=== PATIENT | female | born 1980 | race American Indian/Alaskan Native ===

== ENCOUNTER 2017-07-30 22:08 | Inpatient (IN) | payer OTHER ==
[2017-07-30 23:35] LABS: Hematocrit 51.6 % (30.3-42.9); Hemoglobin 16.7 gm/dl (10.1-14.3); Mean Corpuscular HGB Conc 32 % (30-34); Mean Corpuscular Hemoglobin 27 pg (28-32); Mean Corpuscular Volume 84 fl (79-97); Red Blood Count 6.13 M/mm3 (3.65-5.03); Red Cell Distribution Width 14.3 % (13.2-15.2); White Blood Count 10.7 K/mm3 (4.5-11.0)
[2017-07-30 23:42] LABS: Anion Gap 33 mmol/L; BUN/Creatinine Ratio 20; Blood Urea Nitrogen 18 mg/dL (7-17); Calcium 11.2 mg/dL (8.4-10.2); Carbon Dioxide 15 mmol/L (22-30); Chloride 93.5 mmol/L (98-107); Glucose 100 mg/dL (65-100); Potassium 4.7 mmol/L (3.6-5.0); Sodium 137 mmol/L (137-145)
[2017-07-30 23:51] LABS: Platelet Count 216 K/mm3 (140-440)
[2017-07-31 01:13] LABS: Bilirubin,Urine NEG (Negative); Blood,Urine SM (Negative); Ketones,Urine 80 mg/dL (Negative); Leukocyte Esterase,Urine NEG (Negative); Mucus,Urine FEW /HPF; Nitrite,Urine NEG (Negative); Urobilinogen,Urine < 2.0 mg/dL (<2.0)
[2017-07-31 01:25] LABS: Anisocytosis Few; Basophils % (Manual) 0 % (0.0-1.8); Blastocytes % (Manual) 0 %; Eosinophils % (Manual) 0 % (0.0-4.3); Hypochromasia Few; Platelet Clumps Rare
[2017-07-31 01:26] LABS: Diff Status Complete
[2017-07-31] MEDS ORDERED: D50W (25GM) Syringe IV ONE (03:27)
[2017-07-31] MEDS ORDERED: [UNRECOGNIZED DRUG - OTHER] IV ONE (03:28)
--- NOTE | 2017-07-31 04:55 | Emergency Department Report ---
ED General Adult HPI - General Chief complaint: Hyperglycemia Stated complaint: N/V; ABD PAIN Time Seen by Provider: 07/31/17 04:41 Source: patient Mode of arrival: Ambulatory Limitations: Other - History of Present Illness Initial comments: 37 YO FEMALE RAN OUT OF NPH INSULIN FOR A WHILE AND HAS BEEN attempting to manage her blood sugar levels by herself. she no longer has insurance coverage -: Gradual Severity scale (0 -10): 0 - Related Data Allergies Allergy/AdvReac Type Severity Reaction Status Date / Time No Known Allergies Allergy Verified 07/31/17 03:28 ED Review of Systems ROS: Stated complaint: N/V; ABD PAIN Other details as noted in HPI Constitutional: denies: chills, fever Eyes: denies: eye pain, eye discharge, vision change ENT: denies: ear pain, throat pain Respiratory: denies: cough, shortness of breath, wheezing Cardiovascular: denies: chest pain, palpitations Endocrine: no symptoms reported Gastrointestinal: abdominal pain, nausea, vomiting. denies: diarrhea Genitourinary: denies: urgency, dysuria, discharge Musculoskeletal: denies: back pain, joint swelling, arthralgia Skin: denies: rash, lesions Neurological: denies: headache, weakness, paresthesias Psychiatric: denies: anxiety, depression Hematological/Lymphatic: denies: easy bleeding, easy bruising ED Past Medical Hx - Past Medical History Previous Medical History?: Yes Hx Diabetes: Yes Additional medical history: FX RT LEG,RODS BROKE - Surgical History Additional Surgical History: fx leg - Social History Smoking Status: Never Smoker Substance Use Type: None ED Physical Exam - General Limitations: Other General appearance: alert, in no apparent distress - Head Head exam: Present: atraumatic, normocephalic - Eye Eye exam: Present: normal appearance, EOMI - ENT ENT exam: Present: mucous membranes moist - Neck Neck exam: Present: normal inspection - Respiratory Respiratory exam: Present: normal lung sounds bilaterally. Absent: respiratory distress - Cardiovascular Cardiovascular Exam: Present: normal rhythm, tachycardia, normal heart sounds. Absent: systolic murmur, diastolic murmur, rubs, gallop - GI/Abdominal GI/Abdominal exam: Present: soft, normal bowel sounds - Extremities Exam Extremities exam: Present: normal inspection - Back Exam Back exam: Present: normal inspection - Neurological Exam Neurological exam: Present: alert, oriented X3 - Psychiatric Psychiatric exam: Present: normal affect, normal mood - Skin Skin exam: Present: warm, dry, intact, normal color. Absent: rash ED Course Vital Signs 07/30/17 07/31/17 07/31/17 22:52 03:00 03:01 Temperature 98.2 F 97.6 F Pulse Rate 83 118 H Respiratory 24 18 Rate Blood Pressure 105/73 151/96 Blood Pressure 151/96 [Left] O2 Sat by Pulse 100 100 Oximetry 07/31/17 07/31/17 07/31/17 03:15 03:30 03:45 Temperature Pulse Rate 116 H 116 H 114 H Respiratory 14 17 14 Rate Blood Pressure 151/96 126/82 126/82 Blood Pressure [Left] O2 Sat by Pulse 98 100 100 Oximetry 07/31/17 07/31/17 07/31/17 04:00 04:15 04:30 Temperature Pulse Rate 117 H 118 H 120 H Respiratory 13 15 15 Rate Blood Pressure 123/83 123/83 110/80 Blood Pressure [Left] O2 Sat by Pulse 99 100 Oximetry 07/31/17 07/31/17 07/31/17 04:45 05:00 05:15 Temperature Pulse Rate 118 H 113 H 115 H Respiratory 16 13 46 H Rate Blood Pressure 110/80 130/88 130/88 Blood Pressure [Left] O2 Sat by Pulse 99 97 99 Oximetry ED Medical Decision Making - Lab Data Result diagrams: 07/30/17 23:04 07/31/17 03:50 Critical Care Time: Yes Critical care time in (mins) excluding proc time.: 60 Critical care attestation.: If time is entered above; I have spent that time in minutes in the direct care of this critically ill patient, excluding procedure time. all;en-[place] ED Disposition Clinical Impression: DKA (diabetic ketoacidoses) Qualifiers: Diabetes mellitus type: other specified (including GABRIEL) Diabetes mellitus complication detail: without coma Qualified Code(s): E13.10 - Other specified diabetes mellitus with ketoacidosis without coma Disposition: -09 OP ADMIT IP TO THIS HOSP Is pt being admited?: Yes Condition: Stable Time of Disposition: 05:47 (case reviewed with dr karen key and she will admit him to the hospital)
[2017-07-31] MEDS ORDERED: D50W (25GM) Syringe IV PRN (04:59)
[2017-07-31] MEDS ORDERED: ZOFRAN IV PRN (05:00)
[2017-07-31] MEDS ORDERED: DULCOLAX PR PRN (05:00)
[2017-07-31] MEDS ORDERED: MILK OF MAGNESIA PO PRN (05:00)
[2017-07-31] MEDS ORDERED: D5/0.45NS 1,000 ML IV SCH (05:00)
[2017-07-31] MEDS ORDERED: TYLENOL PO PRN (05:00)
--- NOTE | 2017-07-31 06:06 | History and Physical Report ---
History of Present Illness Date of examination: 07/31/17 Date of admission: 07/31/17 05:00 History of present illness: 37-year-old man with a history of diabetes, rheumatoid arthritis sitting 97 complaining of increased thirst, feeling tired, generalized weakness 3 days. She ran out of her NPH over the last 3 days and has been using regular insulin. , She took 20 units of regular insulin before coming to the emergency room. Also complaining of burning in her chest which she stated is typical when she gets DKA Review Of Systems: Constitutional: no weight loss Ears, eyes, nose, mouth and throat: no nasal congestion, no nasal discharge, no sinus pressure, blurry vision, diplopia Neck: No neck pain or rigidity. Cardiovascular:no chest pain, orthopnea, palpitations Respiratory: No shortness of breath, cough Gastrointestinal: abdominal pain, hematochezia Genitourinary : no dysuria, frequency , hematuria Musculoskeletal: no muscle ache Integumentary: no rash, no pruritis Neurological: no parathesias, focal weakness Endocrine: no cold or heat intolerance, no polyuria or polydipsia Hematologic/Lymphatic: no easy bruising, no easy bleeding, no gland swelling Allergic/Immunologic: no urticaria, no angioedema. PAST MEDICAL HISTORY:diabetes, rheumatoid arthritis PAST SURGICAL HISTORY: Broken leg status post surgery FAILY HISTORY:diabetes SOCIAL HISTORY: 3 cigars a day, alcohol or drugs Medications and Allergies Allergies Allergy/AdvReac Type Severity Reaction Status Date / Time No Known Allergies Allergy Verified 07/31/17 03:28 Active Meds: Active Medications Acetaminophen (Tylenol) 650 mg PO Q4H PRN PRN Reason: Pain MILD(1-3)/Fever >100.5/HUSAIN Bisacodyl (Dulcolax) 10 mg UT QDAY PRN PRN Reason: Constipation unrelieved by MOM Dextrose (D50w (25gm) Syringe) 0 ml IV ONCE PRN PRN Reason: Hypoglycemia Enoxaparin Sodium (Lovenox) 40 mg SUB-Q QDAY RAFFY Dextrose/Sodium Chloride (D5/0.45ns) 1,000 mls @ 150 mls/hr IV DIRECT RAFFY Last Admin: 07/31/17 04:50 Dose: 150 mls/hr Insulin Human Regular 100 (units/ Sodium Chloride) 100 mls @ 1 mls/hr IV TITR RAFFY; 1 UNITS/HR PRN Reason: Protocol Magnesium Hydroxide (Milk Of Magnesia) 30 ml PO Q4H PRN PRN Reason: Constipation Ondansetron HCl (Zofran) 4 mg IV Q8H PRN PRN Reason: N/V unrelieved by Reglan Exam - Physical Exam Narrative exam: Gen. appearance: Patient lying in bed in no acute distress HEENT: Normocephalic/atraumatic, pupils equal round reactive to light, extra alkaline movement intact, no scleral icterus, no JVD or thyromegaly or nodule, neck is supple, mucous membrane dry, no erythema or exudate Heart: S1-S2, regular rate and rhythm Lungs: Clear to auscultation bilateral breathing comfortable Abdomen: Positive bowel sounds, nontender, nondistended, no organomegaly Extremities: No edema, cyanosis, clubbing Neuro:: Oriented 3 , cranial nerves II-12 intact, speech, motor intact Skin: No rash, nodules, warm dry - Constitutional Vitals: Temp Pulse Resp BP Pulse Ox 97.6 F 115 H 46 H 130/88 99 07/31/17 03:00 07/31/17 05:15 07/31/17 05:15 07/31/17 05:15 07/31/17 05:15 Results - Labs CBC & Chem 7: 07/30/17 23:04 07/31/17 03:50 Labs: Abnormal lab results 07/30/17 07/30/17 07/31/17 Range/Units 23:04 23:04 03:28 RBC 6.13 H (3.65-5.03) M/mm3 Hgb 16.7 H (10.1-14.3) gm/dl Hct 51.6 H (30.3-42.9) % MCH 27 L (28-32) pg Seg Neuts % (Manual) 72.0 H (40.0-70.0) % Chloride 93.5 L (98-107) mmol/L Carbon Dioxide 15 L (22-30) mmol/L BUN 18 H (7-17) mg/dL Glucose (65-100) mg/dL POC Glucose < 40 L (70-105) Calcium 11.2 H (8.4-10.2) mg/dL 07/31/17 07/31/17 Range/Units 03:50 03:56 RBC (3.65-5.03) M/mm3 Hgb (10.1-14.3) gm/dl Hct (30.3-42.9) % MCH (28-32) pg Seg Neuts % (Manual) (40.0-70.0) % Chloride (98-107) mmol/L Carbon Dioxide (22-30) mmol/L BUN (7-17) mg/dL Glucose 164 H (65-100) mg/dL POC Glucose 174 H (70-105) Calcium (8.4-10.2) mg/dL Assessment and Plan Assessment DKA Rheumatoid arthritis Plan Admit to medicine Initiate DKA protocol with IV fluids, insulin drip Check serial chemistry, fingersticks and activity prophylaxis, check cardiac enzymes Consult critical care
[2017-07-31] MEDS: NovoLIN R 100 UNITS in NACL 0.9% 99 ML IV SCH ×5 (06:35→12:43)
[2017-07-31 07:07] LABS: Creatine Kinase MB 1.2 ng/mL (0.0-4.0)
[2017-07-31 07:08] LABS: Creatine Kinase 65 units/L (30-135)
[2017-07-31 07:12] LABS: Anion Gap 25 mmol/L; BUN/Creatinine Ratio 24; Blood Urea Nitrogen 19 mg/dL (7-17); Calcium 9.7 mg/dL (8.4-10.2); Carbon Dioxide 16 mmol/L (22-30); Chloride 96.8 mmol/L (98-107); Glucose 134 mg/dL (65-100); Potassium 4.6 mmol/L (3.6-5.0); Sodium 133 mmol/L (137-145)
[2017-07-31] MEDS ORDERED: REGLAN IV PRN (08:16)
[2017-07-31] MEDS: LOVENOX SUB-Q SCH (10:28)
[2017-07-31 10:37] LABS: Anion Gap 18 mmol/L; BUN/Creatinine Ratio 21; Blood Urea Nitrogen 17 mg/dL (7-17); Calcium 9.4 mg/dL (8.4-10.2); Carbon Dioxide 22 mmol/L (22-30); Chloride 98.5 mmol/L (98-107); Glucose 115 mg/dL (65-100); Potassium 3.4 mmol/L (3.6-5.0); Sodium 135 mmol/L (137-145)
[2017-07-31 12:15] LABS: Anion Gap 20 mmol/L; BUN/Creatinine Ratio 21; Blood Urea Nitrogen 17 mg/dL (7-17); Calcium 9.6 mg/dL (8.4-10.2); Carbon Dioxide 21 mmol/L (22-30); Chloride 100.3 mmol/L (98-107); Glucose 107 mg/dL (65-100); Potassium 3.4 mmol/L (3.6-5.0); Sodium 138 mmol/L (137-145)
[2017-07-31 12:34] LABS: Creatine Kinase MB 1.1 ng/mL (0.0-4.0)
[2017-07-31 12:35] LABS: Creatine Kinase 44 units/L (30-135)
[2017-07-31] MEDS ORDERED: D5W/0.45% NACL/KCL 20 MEQ 20 MEQ/1,000 ML BAG IV SCH (14:00)
[2017-07-31] MEDS ORDERED: NORCO 10/325 PO PRN (14:17)
[2017-07-31] MEDS ORDERED: MORPHINE IV PRN (14:17)
[2017-07-31] MEDS ORDERED: NORCO 5/325 PO PRN (14:17)
--- NOTE | 2017-07-31 14:17 | Progress Note ---
Assessment and Plan Assessment and plan: Patient is 37-year-old woman with a rheumatoid arthritis, history of insulin- dependent diabetes mellitus who presents with hyperglycemia because she ran out of insulin. Counseling done -DKA, anion gap is closed out of 16 corrected, discussed with Dr. Dasilva is okay to downgrade from ICU: Detailed instructions entered into the computer and given to nurse for transition to Levemir -Uncontrolled type 1 diabetes mellitus due to noncompliance -Noncompliance: Counseling done -History of rheumatoid arthritis: No steroids due to DKA, treat symptomatically -Metabolic acidosis due to above The high probability of a clinically significant, sudden or life threatening deterioration of the [neurologic,cardiac] system(s) required my full and direct attention, intervention and personal management. The aggregate critical care time was [35] minutes. This time is in addition to time spent performing reported procedures but includes the following: [x] Data Review and interpretation [x] Patient assessment and monitoring of vital signs [x] Documentation [x] Medication orders and management History Interval history: Patient was seen and examined. Follow-up on current diagnosis, hyperglycemia. Overnight uneventful. Patient denies any chest pain, shortness breath, nausea/ vomiting or severe headaches. Imaging, nursing note, chart, labs and old chart reviewed. Discussed with patient. Hospitalist Physical - Physical exam Narrative exam: GEN: WDWN, NAD, AWAKE, ALERT, ORIENTATED 3 HEENT: NCAT, EOMI, PERRL, OP Clear NECK: supple, no adenopathy, no thyromegaly, no JVD CVS/HEART: RRR, NORMAL S1S2, NO JVD, pulses present bilaterally CHEST/LUNGS: CTA B, Symmetrical chest expansion, good air entry bilaterally GI/Abdomen: soft, NTND, good bowel sounds, no guarding or rebound /Bladder: no suprapubic tenderness, no CVA or paraspinal tenderness EXT/Skin: no c/c/e, no obvious rash MSK: FROM x 4 Neuro: CN 2-12 grossly intact, no new focal deficits Psych: calm - Constitutional Vitals: Temp Pulse Resp BP Pulse Ox 99.0 F 106 H 16 124/77 99 07/31/17 11:40 07/31/17 13:30 07/31/17 13:30 07/31/17 13:30 07/31/17 13:30 Results - Labs CBC & Chem 7: 07/30/17 23:04 07/31/17 11:49 Labs: Laboratory Last Values WBC 10.7 K/mm3 (4.5-11.0) 07/30/17 23:04 RBC 6.13 M/mm3 (3.65-5.03) H 07/30/17 23:04 Hgb 16.7 gm/dl (10.1-14.3) H 07/30/17 23:04 Hct 51.6 % (30.3-42.9) H 07/30/17 23:04 MCV 84 fl (79-97) 07/30/17 23:04 MCH 27 pg (28-32) L 07/30/17 23:04 MCHC 32 % (30-34) 07/30/17 23:04 RDW 14.3 % (13.2-15.2) 07/30/17 23:04 Plt Count 216 K/mm3 (140-440) 07/30/17 23:04 Add Manual Diff Complete 07/30/17 23:04 Total Counted 100 07/30/17 23:04 Seg Neuts % (Manual) 72.0 % (40.0-70.0) H 07/30/17 23:04 Band Neutrophils % 3.0 % 07/30/17 23:04 Lymphocytes % (Manual) 22.0 % (13.4-35.0) 07/30/17 23:04 Reactive Lymphs % (Man) 0 % 07/30/17 23:04 Monocytes % (Manual) 3.0 % (0.0-7.3) 07/30/17 23:04 Eosinophils % (Manual) 0 % (0.0-4.3) 07/30/17 23:04 Basophils % (Manual) 0 % (0.0-1.8) 07/30/17 23:04 Metamyelocytes % 0 % 07/30/17 23:04 Myelocytes % 0 % 07/30/17 23:04 Promyelocytes % 0 % 07/30/17 23:04 Blast Cells % 0 % 07/30/17 23:04 Nucleated RBC % Not Reportable 07/30/17 23:04 Seg Neutrophils # Man 7.7 K/mm3 (1.8-7.7) 07/30/17 23:04 Band Neutrophils # 0.3 K/mm3 07/30/17 23:04 Lymphocytes # (Manual) 2.4 K/mm3 (1.2-5.4) 07/30/17 23:04 Abs React Lymphs (Man) 0.0 K/mm3 07/30/17 23:04 Monocytes # (Manual) 0.3 K/mm3 (0.0-0.8) 07/30/17 23:04 Eosinophils # (Manual) 0.0 K/mm3 (0.0-0.4) 07/30/17 23:04 Basophils # (Manual) 0.0 K/mm3 (0.0-0.1) 07/30/17 23:04 Metamyelocytes # 0.0 K/mm3 07/30/17 23:04 Myelocytes # 0.0 K/mm3 07/30/17 23:04 Promyelocytes # 0.0 K/mm3 07/30/17 23:04 Blast Cells # 0.0 K/mm3 07/30/17 23:04 WBC Morphology Not Reportable 07/30/17 23:04 Hypersegmented Neuts Not Reportable 07/30/17 23:04 Hyposegmented Neuts Not Reportable 07/30/17 23:04 Hypogranular Neuts Not Reportable 07/30/17 23:04 Smudge Cells Not Reportable 07/30/17 23:04 Toxic Granulation Not Reportable 07/30/17 23:04 Toxic Vacuolation Not Reportable 07/30/17 23:04 Dohle Bodies Not Reportable 07/30/17 23:04 Pelger-Huet Anomaly Not Reportable 07/30/17 23:04 Aileen Rods Not Reportable 07/30/17 23:04 Platelet Estimate Appears normal 07/30/17 23:04 Clumped Platelets Rare 07/30/17 23:04 Plt Clumps, EDTA Not Reportable 07/30/17 23:04 Large Platelets Not Reportable 07/30/17 23:04 Giant Platelets Not Reportable 07/30/17 23:04 Platelet Satelliting Not Reportable 07/30/17 23:04 Plt Morphology Comment Not Reportable 07/30/17 23:04 RBC Morphology Not Reportable 07/30/17 23:04 Dimorphic RBCs Not Reportable 07/30/17 23:04 Polychromasia Not Reportable 07/30/17 23:04 Hypochromasia Few 07/30/17 23:04 Poikilocytosis Not Reportable 07/30/17 23:04 Anisocytosis Few 07/30/17 23:04 Microcytosis Not Reportable 07/30/17 23:04 Macrocytosis Not Reportable 07/30/17 23:04 Spherocytes Not Reportable 07/30/17 23:04 Pappenheimer Bodies Not Reportable 07/30/17 23:04 Sickle Cells Not Reportable 07/30/17 23:04 Target Cells Not Reportable 07/30/17 23:04 Tear Drop Cells Not Reportable 07/30/17 23:04 Ovalocytes Not Reportable 07/30/17 23:04 Helmet Cells Not Reportable 07/30/17 23:04 Ybarra-Lamesa Bodies Not Reportable 07/30/17 23:04 [place] Rings Not Reportable 07/30/17 23:04 [place] Cells Not Reportable 07/30/17 23:04 Bite Cells Not Reportable 07/30/17 23:04 Crenated Cell Not Reportable 07/30/17 23:04 Elliptocytes Not Reportable 07/30/17 23:04 Acanthocytes (Spur) Not Reportable 07/30/17 23:04 Rouleaux Not Reportable 07/30/17 23:04 Hemoglobin C Crystals Not Reportable 07/30/17 23:04 Schistocytes Not Reportable 07/30/17 23:04 Malaria parasites Not Reportable 07/30/17 23:04 Antonio Bodies Not Reportable 07/30/17 23:04 Hem Pathologist Commnt No 07/30/17 23:04 VBG pH 7.334 (7.320-7.420) 07/30/17 23:04 Sodium 138 mmol/L (137-145) 07/31/17 11:49 Potassium 3.4 mmol/L (3.6-5.0) L 07/31/17 11:49 Chloride 100.3 mmol/L (98-107) 07/31/17 11:49 Carbon Dioxide 21 mmol/L (22-30) L 07/31/17 11:49 Anion Gap 20 mmol/L 07/31/17 11:49 BUN 17 mg/dL (7-17) 07/31/17 11:49 Creatinine 0.8 mg/dL (0.7-1.2) 07/31/17 11:49 Estimated GFR > 60 ml/min 07/31/17 11:49 BUN/Creatinine Ratio 21 % 07/31/17 11:49 Glucose 107 mg/dL (65-100) H 07/31/17 11:49 POC Glucose 122 (70-105) H 07/31/17 13:47 Calcium 9.6 mg/dL (8.4-10.2) 07/31/17 11:49 Phosphorus 3.50 mg/dL (2.5-4.5) 07/31/17 06:40 Magnesium 2.10 mg/dL (1.7-2.3) 07/31/17 06:40 Total Creatine Kinase 44 units/L (30-135) 07/31/17 11:49 CK-MB (CK-2) 1.1 ng/mL (0.0-4.0) 07/31/17 11:49 CK-MB (CK-2) Rel Index 2.5 (0-4) 07/31/17 11:49 Troponin T < 0.010 ng/mL (0.00-0.029) 07/31/17 11:49 HCG, Qual Negative (Negative) 07/30/17 23:04 Urine Color Yellow (Yellow) 07/31/17 00:32 Urine Turbidity Clear (Clear) 07/31/17 00:32 Urine pH 5.0 (5.0-7.0) 07/31/17 00:32 Ur Specific [place] 1.021 (1.003-1.030) 07/31/17 00:32 Urine Protein 30 mg/dl mg/dL (Negative) 07/31/17 00:32 Urine Glucose (UA) >=500 mg/dL (Negative) 07/31/17 00:32 Urine Ketones 80 mg/dL (Negative) 07/31/17 00:32 Urine Blood Sm (Negative) 07/31/17 00:32 Urine Nitrite Neg (Negative) 07/31/17 00:32 Urine Bilirubin Neg (Negative) 07/31/17 00:32 Urine Urobilinogen < 2.0 mg/dL (<2.0) 07/31/17 00:32 Ur Leukocyte Esterase Neg (Negative) 07/31/17 00:32 Urine WBC (Auto) 1.0 /HPF (0.0-6.0) 07/31/17 00:32 Urine RBC (Auto) 1.0 /HPF (0.0-6.0) 07/31/17 00:32 U Epithel Cells (Auto) 1.0 /HPF (0-13.0) 07/31/17 00:32 Hyaline Casts 4 /LPF 07/31/17 00:32 Urine Mucus Few /HPF 07/31/17 00:32
[2017-07-31] MEDS ORDERED: LEVEMIR SUB-Q ONE (15:00)
[2017-07-31] MEDS: PROTONIX PO SCH (15:14)
[2017-07-31] MEDS: NACL 0.9% 1000 ML 1,000 ML IV SCH (15:15)
[2017-07-31 21:28] LABS: Anion Gap 22 mmol/L; BUN/Creatinine Ratio 21; Blood Urea Nitrogen 15 mg/dL (7-17); Calcium 9.3 mg/dL (8.4-10.2); Carbon Dioxide 21 mmol/L (22-30); Chloride 100.1 mmol/L (98-107); Glucose 135 mg/dL (65-100); Potassium 3.7 mmol/L (3.6-5.0); Sodium 139 mmol/L (137-145)
[2017-08-01] MEDS: NACL 0.9% 1000 ML 1,000 ML IV SCH (01:10)
[2017-08-01] MEDS ORDERED: D50W (25GM) Vial 50 ML IV ONE (05:17)
[2017-08-01] MEDS ORDERED: D50W (25GM) Vial IV ONE (05:18)
--- NOTE | 2017-08-01 08:45 | Discharge Summary ---
Providers - Providers Date of Admission: 07/31/17 05:00 Date of discharge: 08/01/17 Attending physician: LUI CARLISLE 07/31/17 05:00 Consult to Physician [CONS] Routine Consulting Provider: DEVON SANTOS Reason For Exam: cc Place consult to:: cc director of sustainability programs Notified:: y Was contact made?: Yes If yes, spoke with:: DR SANTOS Time called:: 08:10 Primary care physician: SCRAPE GATHERER Hospitalization Condition: Stable Hospital course: Patient is 37-year-old woman with a rheumatoid arthritis, history of insulin- dependent diabetes mellitus who presents with hyperglycemia because she ran out of insulin. Counseling done -DKA, anion gap is closed out of 16 corrected, discussed with Dr. Santos is okay to downgrade from ICU: Detailed instructions entered into the computer and given to nurse for transition to Levemir -Uncontrolled type 1 diabetes mellitus due to noncompliance -Noncompliance: Counseling done -History of rheumatoid arthritis: No steroids due to DKA, treat symptomatically -Metabolic acidosis due to above -Transient hypoglycemia because she did not eat yesterday, I ordered her a diet since lunch yesterday but she did not get lunch or dinner. She has her insulin at home. 10units am nph and 18 units nph at bedtime. regular ssi Disposition: DC-01 TO HOME OR SELFCARE Time spent for discharge: 35 minutes Core Measure Documentation - Palliative Care Palliative Care/ Comfort Measures: Not Applicable - Core Measures Any of the following diagnoses?: none - VTE Discharge Requirements Deep Vein Thrombosis/Pulmonary Embolism Present on Admission: No Has pt received <5 days of overlap therapy or INR<2.0: No Anticoagulant overlap therapy prescribed at discharge: No Contraindication No Overlap Therapy order at DC: Not Indicated Exam - Physical Exam Narrative exam: GEN: WDWN, NAD, AWAKE, ALERT, ORIENTATED 3 HEENT: NCAT, EOMI, PERRL, OP Clear NECK: supple, no adenopathy, no thyromegaly, no JVD CVS/HEART: RRR, NORMAL S1S2, NO JVD, pulses present bilaterally CHEST/LUNGS: CTA B, Symmetrical chest expansion, good air entry bilaterally GI/Abdomen: soft, NTND, good bowel sounds, no guarding or rebound /Bladder: no suprapubic tenderness, no CVA or paraspinal tenderness EXT/Skin: no c/c/e, no obvious rash MSK: FROM x 4 Neuro: CN 2-12 grossly intact, no new focal deficits Psych: calm - Constitutional Vitals: Temp Pulse Resp BP Pulse Ox 99.2 F 103 H 18 122/78 99 07/31/17 19:30 07/31/17 19:18 08/01/17 00:12 07/31/17 19:18 08/01/17 00:12 Plan Activity: other (no strenous activity until cleared by pcp) Diet: diabetic Special Instructions: record blood sugar diary Follow up with: PRIMARY CARE, [Primary Care Provider] - 3-5 Days
[2017-08-01 09:10] VITALS: BP 118/80
[2017-08-01] MEDS: PROTONIX PO SCH (09:23)
[2017-08-01] MEDS: LOVENOX SUB-Q SCH (09:26)
[2017-08-01] MEDS ORDERED: LEVEMIR SUB-Q SCH (10:00)
== END 2017-08-01 13:10 | disposition home or self-care (01) | DRG 639 ==
LOC: ED 22:08 → CC1 07-31 05:00 → 3A 07-31 17:00
PROVIDERS: ADMIT Internal Medicine; ATTEND Internal Medicine
DX: E13.10 Other specified diabetes mellitus with ketoacidosis without coma (principal); M06.9 Rheumatoid arthritis, unspecified; Z83.3 Family history of diabetes mellitus; F17.210 Nicotine dependence, cigarettes, uncomplicated; Z91.19 Patient's noncompliance with other medical treatment and regimen
CPT/HCPCS: 36415; 80048; 81001; 82550; 82553; 82805; 82947; 82962; 83735; 84100; 84484; 84703; 85007; 85025; 96374; 96375; 99291; 99406; J1650; J1815; J1818; J7030